=== PATIENT | female | born 1990 | race Hispanic/Latino ===

== ENCOUNTER 2016-07-31 02:53 | Emergency (ER) | payer MEDICAID ==
[2016-07-31 00:12] VITALS: BMI 27.6
[2016-07-31 01:10] LABS: RBC URINE 2 /hpf (0-3); URINE BACTERIA RARE (<OCC); URINE BILIRUBIN NEGATIVE (NEGATIVE); URINE BLOOD NEGATIVE (NEGATIVE); URINE COLOR YELLOW (YELLOW); URINE GLUCOSE (UA) NEG (Normal); URINE KETONE NEGATIVE (NEGATIVE); URINE LEUKOCYTE ESTERASE NEG Leu/uL (Negative); URINE PROTEIN NEGATIVE (NEGATIVE); URINE UROBILINOGEN 0.2-1.0 mg/dL (0.2-1.0); WBC URINE 2 /hpf (0-5)
[2016-07-31 03:33] VITALS: BP 105/55; PULSE 73; RESP 17; TEMP 98.1; O2SAT 98
--- NOTE | 2016-07-31 04:20 | ED PDOC ---
HPI: Abdomen Time Seen by Provider: 07/31/16 03:38 Chief Complaint (Nursing): Abdominal Pain Chief Complaint (Provider): right flank pain History Per: Patient History/Exam Limitations: no limitations Onset/Duration Of Symptoms: Days (3), Waxing/Waning Current Symptoms Are (Timing): Gone Now Location Of Pain/Discomfort: Other (right flank) Associated Symptoms: Nausea Additional History Per: Patient Additional Complaint(s): 26 y/o female presents with intermittent right flank pain x 2 days. Past Medical History Reviewed: Historical Data, Nursing Documentation, Vital Signs Vital Signs: Last Vital Signs Temp 98.1 F 07/31/16 03:23 Pulse 73 07/31/16 03:23 Resp 17 07/31/16 03:23 BP 105/55 L 07/31/16 03:23 Pulse Ox 98 07/31/16 04:20 - Medical History PMH: No Chronic Diseases - Surgical History Surgical History: No Surg Hx - Family History Family History: States: Unknown Family Hx - Home Medications Home Medications: Ambulatory Orders Medication Instructions Recorded Doxycycline Hyclate mg PO BID 05/04/15 Naproxen [Naprosyn] 500 mg PO Q12H #20 tab 05/04/15 - Allergies Allergies/Adverse Reactions: Allergies Allergy/AdvReac Type Severity Reaction Status Date / Time No Known Allergies Allergy Verified 07/23/15 09:38 Review of Systems ROS Statement: Except As Marked, All Systems Reviewed And Found Negative Gastrointestinal: Positive for: Abdominal Pain (right flank) Physical Exam - Reviewed Nursing Documentation Reviewed: Yes Vital Signs Reviewed: Yes - Physical Exam Appears: Positive for: Well, Non-toxic, No Acute Distress Head Exam: Positive for: ATRAUMATIC, NORMAL INSPECTION, NORMOCEPHALIC Skin: Positive for: Normal Color Cardiovascular/Chest: Positive for: Regular Rate, Rhythm Respiratory: Positive for: Normal Breath Sounds Gastrointestinal/Abdominal: Positive for: Normal Exam, Bowel Sounds, Soft Back: Positive for: Normal Inspection. Negative for: L CVA Tenderness, R CVA Tenderness, Muscle Spasm Extremity: Positive for: Normal ROM Neurologic/Psych: Positive for: Alert, Oriented - Laboratory Results Result Diagrams: 07/31/16 04:46 07/31/16 04:46 - ECG O2 Sat by Pulse Oximetry: 98 - Progress ED Course And Treament: labs, renal u/s EXAM: US Retroperitoneal Limited, Renal CLINICAL HISTORY: 26 years old, female; Pain; Other: Rt flank; ; Additional info: Right flank pain TECHNIQUE: Real-time ultrasound of the retroperitoneum (limited) with image documentation. COMPARISON: No relevant prior studies available. FINDINGS: Right kidney: Normal echogenicity. No calculi. No hydronephrosis. Left kidney: Normal echogenicity. No calculi. No hydronephrosis. Bladder: Unremarkable. Ureteral jets not visualized. IMPRESSION: 1. No acute findings. 2. Non-acute findings are described above. Patient educated on findings, advised follow up [employer]. Tylenol PRN pain. Return to ED for worsening/concerning symptoms. Disposition - Clinical Impression Clinical Impression: Flank pain - Patient ED Disposition Is Patient to be Admitted: No Counseled Patient/Family Regarding: Studies Performed, Diagnosis, Need For Followup - Disposition Referrals: Ciro Rowe MD [Primary Care Provider] - Disposition: Routine/Home Disposition Time: 05:47 Condition: GOOD Additional Instructions: Follow up with [employer] Rol[employer] in 2-3 days. Return to ED for worsening/concerning symptoms. Instructions: Flank Pain (ED)
[2016-07-31 04:49] LABS: BASO % 0.3 % (0.0-2.0); EOS % 0.2 % (0.0-4.0); LYMPH # 1.6 K/uL (1.0-4.3); LYMPH % 17.5 % (20.0-40.0); MEAN CELL VOLUME 90.6 fl (81.0-99.0); MEAN CORPUSCULAR HGB CONC 34.3 g/dL (33.0-37.0); MEAN PLATELET VOLUME 7.8 fl (7.2-11.7); MONO # 0.5 K/uL (0.0-0.8); MONO % 5.9 % (0.0-10.0); NEUT # 6.8 K/uL (1.8-7.0); NEUT % 76.1 % (50.0-75.0); NRBC % 0.1 % (0.0-0.0); RED CELL DISTRIBUTION WIDTH 13.7 % (11.5-14.5); WHITE BLOOD COUNT 8.9 K/uL (4.8-10.8)
[2016-07-31 04:58] LABS: ALB/GLOB RATIO 1.3 (1.0-2.1); ALKALINE PHOSPHATASE 53 U/L (38-126); ALT/SGPT 29 U/L (9-52); AST/SGOT 18 U/L (14-36); BILIRUBIN,TOTAL 0.3 mg/dl (0.2-1.3); BLOOD UREA NITROGEN 8 mg/dl (7-17); CALCIUM 9.2 mg/dL (8.4-10.2); CARBON DIOXIDE 22 mmol/L (22-30); CHLORIDE 105 mmol/L (98-107); GFR AFRICAN-AMERICAN > 60; GLUCOSE,RANDOM 87 mg/dL (65-105); POTASSIUM 3.8 MMOL/L (3.6-5.0); SODIUM 137 mmol/l (132-148)
--- NOTE | 2016-07-31 05:45 | US ---
EXAM: US Retroperitoneal Limited, Renal CLINICAL HISTORY: 26 years old, female; Pain; Other: Rt flank; ; Additional info: Right flank pain TECHNIQUE: Real-time ultrasound of the retroperitoneum (limited) with image documentation. COMPARISON: No relevant prior studies available. FINDINGS: Right kidney: Normal echogenicity. No calculi. No hydronephrosis. Left kidney: Normal echogenicity. No calculi. No hydronephrosis. Bladder: Unremarkable. Ureteral jets not visualized. IMPRESSION: 1.No acute findings. 2.Non-acute findings are described above.
== END 2016-07-31 06:08 | disposition home or self-care (01) ==
LOC: H.EROBSV 02:53 → H.ER 02:53 → H.ERHOLD 02:53 → H.ER 06:08
DX: R10.9 Unspecified abdominal pain (principal); R11.0 Nausea; Z33.1 Pregnant state, incidental

== ENCOUNTER 2018-07-29 17:13 | Emergency (ER) | payer OTHER ==
[2018-07-29 17:13] VITALS: BMI 27.6
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
[2018-07-29 21:03] VITALS: BP 137/73; PULSE 98; RESP 19; TEMP 98
[2018-07-29 23:52] VITALS: O2SAT 98
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
== END 2018-07-29 20:51 | disposition home or self-care (01) ==
LOC: H.ER 17:13
DX: M54.5 Low back pain (principal); M54.2 Cervicalgia; V43.52XA Car driver injured in collision with other type car in traffic accident, initial encounter; Y92.410 Unspecified street and highway as the place of occurrence of the external cause

== ENCOUNTER 2018-08-07 17:31 | Emergency (ER) | payer OTHER ==
[2018-08-07 17:31] VITALS: BMI 27.6
[2018-08-07 17:40] VITALS: BP 143/98; PULSE 94; RESP 18; TEMP 98.2; O2SAT 100
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
== END 2018-08-07 18:15 | disposition home or self-care (01) ==
LOC: H.ER 17:31
DX: M54.9 Dorsalgia, unspecified (principal)